=== PATIENT | female | born 1990 | race Caucasian/White ===

== ENCOUNTER 2018-04-19 15:55 | Emergency (ER) | payer OTHER ==
[~2018-04-19] VITALS: Ht 175.3 cm; Wt 110.7 kg
[2018-04-19 16:09] VITALS: BP 132/73
[2018-04-19] MEDS ORDERED: RALTEGRAVIR 400 MG TABLET. PO ONE (16:45)
[2018-04-19] MEDS ORDERED: EMTRICITAB/TENOFOVIR 200/300MG TABLET. PO ONE (16:45)
[2018-04-19] MEDS ORDERED: RALT400T PO (16:46)
[2018-04-19] MEDS ORDERED: EMTR1TAB8 PO (16:46)
--- NOTE | 2018-04-19 16:46 | PHYS DOC ---
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 She states that just prior to arrival, she sustained a needle stick injury, on the tip of her left thumb. She states she was stuck by an arterial needle, as she was removing the needle from a dialysis patient just completed dialysis. She states the patient is not known to carry any infectious diseases, but did not have his blood drawn while at the facility, but the facility does plan to draw his blood for testing this coming Tuesday when he returns for dialysis. The patient states she is immunized to hepatitis B, denies . She has no other complaints at this time. She states that she did have a small puncture wound on the radial aspect of her left thumb, and did bleed a small amount after the injury. She did wash the the site at work prior to coming to the emergency department. Review of Systems Review of Systems Constitutional: Denies fever or chills [] Respiratory: Denies cough or shortness of breath [] Allergies Allergies Allergies Coded Allergies Type Severity Reaction Last Updated Verified Penicillins Allergy Severe THROAT SWELLING 04/19/18 Yes Physical Exam Physical Exam PHYSICAL EXAM: HEENT: Atruamatic NECK: Supple, normal ROM, non-tender. CARDIAC: Regular Rate and Rhythm LUNGS: Clear Bilaterally EXTREMITIES: There is a small puncture wound, bleeding controlled, on the left thumb. There are no other wounds. Current Patient Data Vital Signs Vital Signs Date Time Temp Pulse Resp B/P (MAP) Pulse Ox O2 Delivery O2 Flow Rate FiO2 04/19/18 16:09 98.0 76 16 132/73 (92) 97 Room Air 98.0 EKG EKG [] Radiology/Procedures Radiology/Procedures [] Course & Med Decision Making Course & Med Decision Making Patient's condition remains a stable. I spoke with infectious disease on-call, who recommended a regimen of Truvada daily and Isentress twice daily. This will be for 30 days. I discussed risk exposure and serial conversion with the patient , who is blood will be drawn, and I discussed importance of close follow-up with her employer's health/Worker's Compensation provider through her employer, as well as her PCP for test results which will be pending at this time. We discussed return precautions. Dragon Disclaimer Dragon Disclaimer This electronic medical record was generated, in whole or in part, using a voice recognition dictation system. Departure Departure Impression: Primary Impression: Needle stick injury Disposition: 01 HOME, SELF-CARE Condition: STABLE Patient Instructions: Needle Stick Injury Scripts Raltegravir Potassium (ISENTRESS) 400 Mg Tablet 1 TAB PO BID, #60 TAB 0 Refills Prov: LEEANN FRANCIS MD 04/19/18 Emtricitabine/Tenofovir (TRUVADA 200 MG-300 MG TABLET) 1 Each Tablet 1 TAB PO DAILY, #30 TAB 0 Refills Prov: LEEANN FRANCIS MD 04/19/18 LEEANN FRANCIS MD Apr 19, 2018 16:46
== END 2018-04-19 17:32 | disposition home or self-care (01) ==
LOC: ER 15:55
DX: S61.032A Puncture wound without foreign body of left thumb without damage to nail, initial encounter (principal); Z88.0 Allergy status to penicillin; Z99.2 Dependence on renal dialysis; W46.0XXA Contact with hypodermic needle, initial encounter; Y93.89 Activity, other specified; Y92.89 Other specified places as the place of occurrence of the external cause; Y99.0 Civilian activity done for income or pay
CPT/HCPCS: 36415; 81025; 86703; 86705; 86709; 86803; 87340; 99284